=== PATIENT | female | born 1975 | race African-American/Black ===

== ENCOUNTER 2016-05-17 10:16 | Emergency (ER) | payer OTHER ==
--- NOTE | ~2016-05-17 | CR72 ---
[facility] A Service of [facility] RADIOLOGY TEXT RESULTS PATIENT: WILL FAULKNER LOCATION: [facility] : 77 UNIT #: [id number] AGE: [address]: Oskar Lozoya MD SEX: F ORDER DR: [id number] [facility]. [place], [place] [address] [id number] MR#: [id number] Acc #: [id number] NAME: WILL FAULKNER : 1975 SEX: F STUDY DATE/TIME: 05/17/2016 9:03 UNIT: [facility] ROOM: STUDY DESCRIPTION: CR Chest Single View Portable Attending Physician: Oskar Lozoya M.D. Ordering Physician: Oskar Lozoya M.D. Primary Care Physician: [facility] MEDICAL IMAGING REPORT This report is preliminary unless electronic signature is present EXAM Portable chest INDICATION 40-year-old female with shortness of breath, cough, chills, nausea, vomiting for 3 days. COMPARISON None. FINDINGS There is a reticulonodular pattern in the mid and lower zones. Given the patient's clinical history, this is suspicious for possible pneumonia. Follow up to clearing is recommended. Heart size normal. Visualized osseous structures unremarkable. IMPRESSION Mid and lower zone reticulonodular pattern suspicious for possible pneumonia given the patient's history. Follow up to clearing is recommended. Dictated by... Baljit Murguia M.D. THIS IS AN ELECTRONICALLY VERIFIED REPORT Baljit Murguia M.D. at 05/17/2016 4:28 PM REAGAN/maria eugenia TD: 05/17/2016 10:22 JOB #: [id number] [facility] A Service of [facility] RADIOLOGY TEXT RESULTS PATIENT: WILL FAULKNER LOCATION: [facility] : 77 UNIT #: [id number] AGE: [address]: Oskar Lozoya MD SEX: F ORDER DR: MEDICAL IMAGING REPORT Page 1 of 1 COPY
[2016-05-17 09:21] LABS: URINE SOURCE CLEAN CATCH
[2016-05-17 09:26] LABS: URINE APPEARANCE CLOUDY; URINE BILIRUBIN NEG (NEG); URINE BLOOD 3+ (NEG); URINE COLOR DK YELLOW; URINE GLUCOSE NEG (NEG); URINE KETONE 1+ (NEG); URINE LEUKOCYTE ESTERASE NEG (NEG); URINE NITRATE NEG (NEG); URINE PH 5.5 (5-8); URINE PROTEIN 1+ (NEG)
[2016-05-17 09:27] LABS: CULTURE INDICATED? YES; URINE BACTERIA AUWI 3+ (NEGATIVE); URINE SQUAMOUS EPITHELIAL CELL MOD /[HPF]
[2016-05-17 09:34] LABS: INFLUENZA A NEG (NEG); INFLUENZA B POS (NEG)
[2016-05-17 09:50] LABS: URINE MUCUS PRESENT
[2016-05-17 09:58] LABS: BASOPHIL% 0.5 % (0-2.5); EOSINOPHIL% 0.4 % (0.0-7.0); HEMATOCRIT 39.9 % (35.0-45.0); HEMOGLOBIN 12.8 gm/dL (12.0-16.0); LYMPHOCYTE# 0.7 X10e3 (1.0-3.5); LYMPHOCYTE% 19.5 % (17.0-45.0); MEAN CELL VOLUME 86.8 FL (83-96); MEAN CORPUSCULAR HEMOGLOBIN 27.9 PG (28-34); MEAN CORPUSCULAR HGB CONC 32.2 g/dL (30-36); MEAN PLATELET VOLUME 9.1 FL (6.5-11.5); MONOCYTE# 0.7 X10e3 (0-1.0); MONOCYTE% 18.9 % (3.0-12.0); NEUTROPHIL# 2.2 X10e3 (1.5-7.1); NEUTROPHIL% 60.7 % (40-75); PLATELET COUNT 140 X10e3 (140-420); RED CELL DISTRIBUTION WIDTH 14.3 % (11.0-15.5); WHITE BLOOD COUNT 3.6 X10e3 (4.0-10.5)
[2016-05-17 09:59] LABS: DIFF IND NO
[2016-05-17 10:20] LABS: ALBUMIN SERUM 4.3 g/dL (3.5-5.0); BILIRUBIN, DIRECT 0.1 mg/dL (0.0-0.2); BILIRUBIN,INDIRECT 0.3 mg/dL (0.0-0.9); BILIRUBIN,TOTAL 0.4 mg/dL (0.2-2.0); BUN/CREATININE RATIO 8.88; CREATININE SERUM 0.9 mg/dL (0.6-1.4); GLOM FILT RATE Estimated 93.4 mL/min (>60); POTASSIUM 3.4 mmol/L (3.5-5.1); PROTEIN TOTAL SERUM 7.6 g/dL (6.0-8.3)
== END 2016-05-17 11:00 | disposition home or self-care (01) ==
LOC: CED 10:16
PROVIDERS: Emergency Medicine
DX: J10.1 Influenza due to other identified influenza virus with other respiratory manifestations (principal); F17.200 Nicotine dependence, unspecified, uncomplicated; Z88.0 Allergy status to penicillin
CPT/HCPCS: 36415; 71010; 80048; 80076; 81003; 84703; 85025; 87086; 87804; 96365; 96375; 99284; J1885; J2550